=== PATIENT | female | born 1955 | race Two or more races ===

== ENCOUNTER 2019-06-14 13:59 | Outpatient (CLI) | payer MEDICARE, OTHER ==
[~2019-06-14] VITALS: Ht 157.5 cm; Wt 70.3 kg
[2019-06-14] MEDS ORDERED: FORTEO2.4 ML SUBQ (15:23)
[2019-06-14] MEDS ORDERED: CALCIUM500 M3 PO (15:23)
[2019-06-14] MEDS ORDERED: SYNTHROID25 MCG ORAL (15:23)
[2019-06-14] MEDS ORDERED: VITAMIN D1000 UNI1 ORAL (15:23)
[2019-06-14 15:24] VITALS: BP 111/53
--- NOTE | 2019-06-14 23:30 | Consultation ---
DATE OF CONSULTATION: 06/14/2019 CHIEF COMPLAINT: GERD and abdominal pain. Screening colonoscopy evaluation. PAST MEDICAL HISTORY: History of osteoporosis, hypothyroidism, and coagulopathy. PAST SURGICAL HISTORY: Appendectomy. MEDICATIONS: She is on levothyroxine, iron, calcium, and vitamin D. ALLERGIES: No known allergies. FAMILY HISTORY: Brother had a gastric cancer. SOCIAL HISTORY: The patient denies any tobacco, alcohol, or drug abuse. REVIEW OF SYSTEMS: A 10-point review of systems was performed and pertinent positive for GERD and abdominal. PHYSICAL EXAMINATION: VITAL SIGNS: Temperature 97.4, blood pressure is , pulse is 72, and respirations 20. Weight is 155. Height is 5 feet 2 inches. HEENT: Normocephalic and atraumatic. Sclerae anicteric. NECK: Supple. No evidence of obvious lymphadenopathy. CARDIOVASCULAR: Regular rate and rhythm. Plus S1 and S2. No obvious murmur. LUNGS: Clear to auscultation bilaterally. ABDOMEN: Positive bowel sounds. Soft and nontender. No rebound. No guarding. No peritoneal sign. EXTREMITIES: No cyanosis. No clubbing. No edema. ASSESSMENT: 1. Chronic GERD. 2. Need for screening colonoscopy. PLAN: Plan for endoscopy and colonoscopy. The patient is scheduled for June 27, 2019. The patient was given instructions and prep for the colonoscopy and she agreed. I want to thank, Dr. Mercado, for this kind referral. John Sy M.D. DR: GLORIA JOB#: [id number] CC: John Mercado M.D.; Fax#: [phone]
== END 2019-06-14 15:59 | disposition home or self-care (01) ==
LOC: PAN 13:59
DX: K21.9 Gastro-esophageal reflux disease without esophagitis (principal); R10.9 Unspecified abdominal pain; E03.9 Hypothyroidism, unspecified; Z90.89 Acquired absence of other organs; Z79.899 Other long term (current) drug therapy; Z85.00 Personal history of malignant neoplasm of unspecified digestive organ; M81.0 Age-related osteoporosis without current pathological fracture
CPT/HCPCS: 99202

== ENCOUNTER 2019-06-27 07:25 | Day surgery (SDC) | payer MEDICARE, OTHER ==
[2019-06-27] VITALS (10 sets, daily range): BP systolic 114–149; BP diastolic 61–68
[~2019-06-27] VITALS: Ht 157.5 cm; Wt 67.1 kg
[~2019-06-27 07:25] MED LIST: CALCIUM500 M3 PO; FORTEO2.4 ML SUBQ; SYNTHROID25 MCG ORAL; VITAMIN D1000 UNI1 ORAL
--- NOTE | 2019-06-27 08:06 | Anethesia Preoperative Eval ---
Anesthesia Pre-op PMH/ROS General Date of Evaluation: Jun 27, 2019 Time of Evaluation: 08:04 Anesthesiologist: Martha Jackson CRNA ASA Score: ASA 2 Mallampati Score Class I : Soft palate, uvula, fauces, pillars visible Class II: Soft palate, uvula, fauces visible Class III: Soft palate, base of uvula visible Class IV: Only hard plate visible Mallampati Classification: Class II Surgeon: Yossi Diagnosis: GERD, colon screening Surgical Procedure: EGD diagnostic, colon screening Anesthesia History: none Family History: no anesthesia problems Allergies: Coded Allergies: No Known Allergies (Unverified , 06/14/19) Medications: see eMAR Patient NPO?: Yes NPO Date: Jun 27, 2019 NPO Time: 00:00 Past Medical History Cardiovascular: Denies: HTN, CAD, [place], valve dz, arrhythmia, other Pulmonary: Denies: asthma, COPD, IAN, other Gastrointestinal/Genitourinary: Reports: GERD; Denies: CRI, ESRD, other Neurologic/Psychiatric: Denies: dementia, CVA, depression/anxiety, TIA, other Endocrine: Reports: hypothyroidism; Denies: DM, steroids, other HEENT: Denies: cataract (L), cataract (R), glaucoma, KOT[place]K (L), KOTLIK (R), other Hematology/Immune: Denies: anemia, DVT, bleeding disorder, other Musculoskeletal/Integumentary: Reports: other - osteoporosis; Denies: OA, RA, DJD, DDD, edema PMH Narrative: as noted above PSxH Narrative: none Anesthesia Pre-op Phys. Exam Physician Exam Last Vital Signs Date Time Temp Pulse Resp B/P (MAP) Pulse Ox O2 Delivery O2 Flow Rate FiO2 06/27/19 07:55 97.6 77 20 124/68 99 Room Air Constitutional: NAD Neurologic: other - Alert & oriented Cardiovascular: RRR Respiratory: CTA Gastrointestinal: S/NT/ND Airway Exam Mallampati Score: Class II MO: full Neck: FROM TMD: > 3 FB ROM: full Teeth: intact Dentures: no upper, no lower Anesthesia Pre-op A/P Studies Pre-op Studies: EKG - NSR Risk Assessment & Plan Assessment: ASA 2, ok to proceed Plan: MAC Status Change Before Surgery: No Pre-Antibiotics Given Within 1 Hr of Incision: Martha Agee CRNA Jun 27, 2019 08:06
--- NOTE | 2019-06-27 08:40 | Pre-Procedure Note/Attestation ---
Pre-Procedure Note/Attestation Complete Prior to Procedure Planned Procedure: not applicable Procedure Narrative: esophagogastroduodenoscopy and colonoscopy Indications for Procedure Pre-Operative Diagnosis: screening colon, GERD Attestation I attest that I discussed the nature of the procedure; its benefits; risks and complications; and alternatives (and the risks and benefits of such alternatives ), prior to the procedure, with the patient (or the patient's legal branch sales and service representative). I attest that, if there was a reasonable possibility of needing a blood transfusion, the patient (or the patient's legal branch sales and service representative) was given the [facility] standardized written summary, pursuant to the Nikolay Mcmillin Blood Safety Act ([place] Health and Safety Code # 1645, as amended). I attest that I re-evaluated the patient just prior to the surgery and that there has been no change in the patient's H&P, except as documented below: John Sy MD Jun 27, 2019 08:40
--- NOTE | 2019-06-27 08:40 | Short Stay Surgery H&P ---
History of Present Illness History of Present Illness Chief Complaint see recent office note HPI Celina Pires is a 64 year old female who was admitted on for Gerd, Colon Screening Patient History Allergies: Coded Allergies: No Known Allergies (Unverified , 06/14/19) Medication History Scheduled Calcium Carbonate (Calcium), 500 MG PO DAILY, (Reported) Cholecalciferol (Vitamin D3)* (Vitamin D*), Unknown Dose ORAL DAILY, (Reported) Levothyroxine Sodium* (Synthroid*), 50 MCG ORAL DAILY, (Reported) Teriparatide Acetate (Forteo), 20 MCG SUBQ DAILY, (Reported) Physical Exam Vital Signs Last Vital Signs Date Time Temp Pulse Resp B/P (MAP) Pulse Ox O2 Delivery O2 Flow Rate FiO2 06/27/19 08:09 Room Air 06/27/19 07:55 97.6 77 20 124/68 99 Plan Attestation Are the patient's medical conditions optimized for surgery? John Sy MD Jun 27, 2019 08:40
[2019-06-27] MEDS ORDERED: Propofol 200mg/20ml IV ONE (09:00)
[2019-06-27] MEDS ORDERED: Lidocaine 1% MPF 10mg/ml 5ml ONE (09:00)
--- NOTE | 2019-06-27 09:24 | Endoscopy Procedure Note ---
Endoscopy Procedure Note General Indication for Procedure: screening colon, GERD Procedures Performed: EGD, colonoscopy Operative Findings/Diagnosis: gastritis, hemorrhoids Specimen: yes Pt Tolerated Procedure Well: Yes Estimated Blood Loss: none Anesthesia Anesthesiologist: rosa m Anesthesia: MAC Inserted Devices Implant(s) used?: No Quality Quality of Bowel Preparation: Excellent Did scope reach the cecum?: Yes Was there any complications?: No GI Core Measures 50 yrs or older w/o bx or poly: No 10yrs. F/U recommended: Yes If not recommended, why?: Above average risk 18 years or older w/prev. colo: Yes <3yrs. since last colonoscopy: No John Sy MD Jun 27, 2019 09:24
--- NOTE | 2019-06-27 09:33 | Immediate Post-Op Evaluation ---
Immediate Post-Op Evalulation Immediate Post-Op Evalulation Procedure: EGD, colonoscopy Date of Evaluation: Jun 27, 2019 Time of Evaluation: 09:32 IV Fluids: 0.9 NS 600 ml Blood Pressure Systolic: 149 Blood Pressure Diastolic: 67 Pulse Rate: 76 Respiratory Rate: 22 O2 Sat by Pulse Oximetry: 100 Temperature (Fahrenheit): 97.6 Pain Score (1-10): 0 Nausea: No Vomiting: No Complications none Patient Status: awake, patent Hydration Status: adequate Given Within 1 Hr of Incision: Martha Agee CRNA Jun 27, 2019 09:33
--- NOTE | 2019-06-27 11:15 | Procedure Note ---
DATE OF PROCEDURE: 06/27/2019 SURGEON: John Sy M.D. PROCEDURE: Colonoscopy and endoscopy with biopsy. ANESTHESIA: Per Martha WINTERS. INSTRUMENT: Olympus adult flexible upper endoscope and colonoscope. INDICATION: Screening colonoscopy evaluation, chronic GERD. REASON FOR PROCEDURE: The procedure, risks, benefits, and possible consequences, including hemorrhage, aspiration, perforation and infection, and alternative treatments, were explained to the patient/legal guardian by Dr. John Sy and the patient/legal guardian understood and accepted these risks. DESCRIPTION OF PROCEDURE: After informed consent was obtained and the patient was adequately sedated, Olympus upper endoscope was advanced from the mouth into the second portion of the duodenum and retroflexion was performed in the stomach. The patient has evidence of mild gastritis. Random biopsy from antrum and body was obtained to rule out H. pylori infection. Otherwise, the rest of upper endoscopic examination grossly looked within normal limits. the patient had minimum distal esophagitis. Then, the patient was turned over for colonoscopy. First, rectal exam was performed, which was positive for internal hemorrhoids. Then, the scope was advanced from rectum into the cecum documented by appendiceal orifice, ileocecal valve, and right upper quadrant palpation. Quality of prep was very good. The patient had normal colonoscopy examination. Retroflexion of rectum showed evidence of internal hemorrhoids. No obvious mass, polyp, diverticulosis, or any other pathology was seen. SUMMARY OF FINDINGS: 1. Gastritis. 2. Minimum distal esophagitis. 3. Internal hemorrhoids. RECOMMENDATIONS: Follow up biopsy results and treat accordingly. John Sy M.D. DR: EMILIE JOB#: [id number] CC:
--- NOTE | 2019-06-27 11:52 | 48 Hour Post Anesthesia Eval ---
Post Anesthesia Evaluation Procedure: EGD, colonoscopy Date of Evaluation: Jun 27, 2019 Time of Evaluation: 11:51 Blood Pressure Systolic: 114 0: 61 Pulse Rate: 76 Respiratory Rate: 18 Temperature (Fahrenheit): 97.8 O2 Sat by Pulse Oximetry: 99 Airway: patent Nausea: No Vomiting: No Pain Intensity: 0 Hydration Status: adequate Cardiopulmonary Status: stable Mental Status/LOC: patient returned to baseline Follow-up Care/Observations: per GI Post-Anesthesia Complications: none Follow-up care needed: ready to discharge Martha Jackson CRNA Jun 27, 2019 11:52
--- NOTE | 2019-06-29 16:17 | Cardiology Report ---
APPROVED REPORT EKG Measurement Heart [id number] Normal sinus rhythm Normal ECG
== END 2019-06-27 10:40 | disposition home or self-care (01) ==
LOC: GAS 07:25
DX: Z12.11 Encounter for screening for malignant neoplasm of colon (principal); K29.70 Gastritis, unspecified, without bleeding; K21.0 Gastro-esophageal reflux disease with esophagitis; K64.8 Other hemorrhoids; Z79.899 Other long term (current) drug therapy; M81.0 Age-related osteoporosis without current pathological fracture; E03.9 Hypothyroidism, unspecified
CPT/HCPCS: 43239; 93005; G0121; J2704; 94003; 94150

== ENCOUNTER 2019-07-11 13:00 | Outpatient (CLI) | payer MEDICARE ==
--- NOTE | 2019-07-11 14:08 | General Progress Note ---
Assessment/Plan Assessment/Plan: s/p EGD and colonoscopy SUMMARY OF FINDINGS: 1. Gastritis. 2. Minimum distal esophagitis. 3. Internal hemorrhoids. ppi repeat colon in 5 years Subjective ROS Limited/Unobtainable: Yes Allergies: Coded Allergies: No Known Allergies (Unverified , 06/14/19) Objective General Appearance: alert EENT: normal ENT inspection Neck: supple Cardiovascular: normal rate Respiratory/Chest: lungs clear Abdomen: normal bowel sounds, non tender, soft Extremities: non-tender John Sy MD Jul 11, 2019 14:08
[2019-07-11 14:54] VITALS: BP 122/68
== END 2019-07-11 15:00 | disposition home or self-care (01) ==
LOC: PAN 13:00
DX: K29.70 Gastritis, unspecified, without bleeding (principal); K20.9 Esophagitis, unspecified; K64.8 Other hemorrhoids
CPT/HCPCS: 99212